=== PATIENT | male | born 1980 | race Caucasian/White ===

== ENCOUNTER 2020-09-09 08:46 | Emergency (ER) | payer SELFPAY ==
[2020-09-09 09:19] LABS: #Eosinphils 0.1 thou/uL (0.0-0.7); #Lymphocytes 3.3 thou/uL (1.20-3.40); #Neutrophils 7.6 thou/uL (1.40-6.50); %Basophils 0.2 % (0.0-1.0); %Eosinophils 0.5 % (0.0-10.0); %Lymphocytes 27.4 % (21.0-51.0); %Monocytes 8.2 % (0.0-10.0); %Neutrophils 63.8 % (42.0-75.0); Hemoglobin 15.9 g/dL (14.0-18.0); Mean Corpuscular HGB CONC 33.8 g/dL (32.0-36.0); Mean Corpuscular Volume 91.6 fL (78.0-98.0); Platelet Count 287 thou/uL (130-400); RBC Distribution Width 12.8 % (11.5-14.5); Red Blood Cell (RBC) Count 5.15 mill/uL (4.70-6.10); White Blood Cell (WBC) Count 11.9 thou/uL (4.8-10.8)
[2020-09-09] MEDS ORDERED: Lidocaine Viscous Sol 2% 15 ml UD Cup ONE (09:37)
[2020-09-09] MEDS ORDERED: Mag-Al 1200 mg/1200 mg/30 ML UDCUP ONE (09:37)
[2020-09-09] MEDS ORDERED: Famotidine/PF 20 mg/2ml Vial ONE (09:37)
[2020-09-09] MEDS ORDERED: Ondansetron PF 4 MG/2 ML Vial ONE (09:37)
[2020-09-09 09:44] LABS: ALT (SGPT) 24 U/L (8-55); AST (SGOT) 29 U/L (5-34); Albumin 4.4 g/dL (3.5-5.0); Alkaline Phosphatase 88 U/L (40-110); Anion Gap 15 mmol/L (10-20); BUN (Urea Nitrogen) 24 mg/dL (8.9-20.6); Bilirubin, Total 0.3 mg/dL (0.2-1.2); Calc. Creatinine Clearance 0 mL/min (70-130); Calcium 9.1 mg/dL (7.8-10.44); Carbon Dioxide 28 mmol/L (22-29); Chloride 100 mmol/L (98-107); Glucose 90 mg/dL (70-105); Potassium 4.1 mmol/L (3.5-5.1); Protein, Total 8.4 g/dL (6.0-8.3); Sodium 139 mmol/L (136-145)
== END 2020-09-09 12:30 | disposition home or self-care (01) ==
LOC: ERS 08:46
DX: K92.2 Gastrointestinal hemorrhage, unspecified (principal); E03.9 Hypothyroidism, unspecified; I10 Essential (primary) hypertension; Z79.899 Other long term (current) drug therapy
CPT/HCPCS: 36415; 80053; 82270; 85025; 86850; 86900; 86901; 87324; 87449; 93005; 96372; 96374; 96375; J0500; J2405; S0028

== ENCOUNTER 2020-09-10 04:49 | Inpatient (IN) | payer OTHER, SELFPAY ==
[2020-09-10] MEDS ORDERED: Pantoprazole 40 MG VIAL ONE (05:36)
[2020-09-10 06:08] LABS: #Basophils 0.1 thou/uL (0.0-0.2); #Eosinphils 0.1 thou/uL (0.0-0.7); #Lymphocytes 3.9 thou/uL (1.20-3.40); #Monocytes 1.1 thou/uL (0.11-0.59); #Neutrophils 10.2 thou/uL (1.40-6.50); %Basophils 0.8 % (0.0-1.0); %Eosinophils 0.6 % (0.0-10.0); %Lymphocytes 25.1 % (21.0-51.0); %Monocytes 7.3 % (0.0-10.0); %Neutrophils 66.3 % (42.0-75.0); Hemoglobin 13.4 g/dL (14.0-18.0); Mean Corpuscular HGB CONC 32.9 g/dL (32.0-36.0); Mean Corpuscular Hemoglobin 30.4 pg (27.0-31.0); Mean Corpuscular Volume 92.3 fL (78.0-98.0); Mean Platelet Volume 10.3 fL (7.4-10.4); Platelet Count 255 thou/uL (130-400); RBC Distribution Width 12.8 % (11.5-14.5); Red Blood Cell (RBC) Count 4.39 mill/uL (4.70-6.10); White Blood Cell (WBC) Count 15.4 thou/uL (4.8-10.8)
[2020-09-10 06:13] LABS: INR-International Normal Ratio 1.1; Prothrombin Time 14.1 sec (12.0-14.7)
[2020-09-10 06:32] LABS: PTT 21.8 sec (22.9-36.1)
[2020-09-10 06:57] LABS: ALT (SGPT) 22 U/L (8-55); AST (SGOT) 25 U/L (5-34); Albumin 4.3 g/dL (3.5-5.0); Alkaline Phosphatase 71 U/L (40-110); Anion Gap 17 mmol/L (10-20); BUN (Urea Nitrogen) 39 mg/dL (8.9-20.6); Bilirubin, Total 0.4 mg/dL (0.2-1.2); Calc. Creatinine Clearance 0 mL/min (70-130); Carbon Dioxide 20 mmol/L (22-29); Chloride 107 mmol/L (98-107); Globulin 3.2 g/dL (2.4-3.5); Glucose 99 mg/dL (70-105); Lipase 60 U/L (8-78); Potassium 3.7 mmol/L (3.5-5.1); Protein, Total 7.5 g/dL (6.0-8.3); Sodium 140 mmol/L (136-145)
[2020-09-10] MEDS ORDERED: Iopamidol-370 76% 500 ML 1 ML ONE (08:36)
--- NOTE | 2020-09-10 08:41 | CT ---
PRELIMINARY REPORT/[facility]/EMERGENCY AFTER HOURS PROCEDURE EXAM: CT Abdomen and Pelvis with Intravenous Contrast CLINICAL HISTORY: Patient who is Covid positive with history of ulcers here secondary to vomiting blood and having bloo dy stools. Started having black stools and then bright red blood per rectum. Had an episode of hematemesis yesterday. States that he is having lightheadedness and shortness of breath. Is having so me crampy upper abdominal pain. slight initial contrast injection. injected 20mL and stopped due to pt not withstanding the pressure of the IV TECHNIQUE: Axial computed tomography images of the abdomen and pelvis with intravenous contrast. CONTRAST: With; ISOVUE 370,90mL COMPARISON: None provided. FINDINGS: LUNG BASES: There are mild patchy peripheral groundglass airspace opacities within both lower lobes. LIVER: Unremarkable. GALLBLADDER AND BILE DUCTS: Unremarkable. No calcified stone. No ductal dilation. PANCREAS: Unremarkable. 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 ADRENAL GLANDS: Unremarkable. KIDNEYS, URETERS, AND BLADDER: The right kidney is unremarkable. There is a 1.4 cm cyst within the midportion of the left kidney. The bladder is underdistended. STOMACH AND BOWEL: No obstruction. No wall thickening. No CT evidence of colitis or acute diverticulitis. APPENDIX: No CT evidence for appendicitis. PERITONEUM: No free fluid. No free air. LYMPH NODES: No lymphadenopathy. REPRODUCTIVE: Unremarkable as visualized. VASCULATURE: No aortic aneurysm. BONES: Mild degenerative changes are seen from L4-S1. No acute osseous findings. ABDOMINAL WALL AND SOFT TISSUES: Unremarkable. IMPRESSION: 1. Mild patchy peripheral groundglass airspace disease within both lower lobes, correlated with histo ry of COVID. 2. No CT evidence of acute abdominal or pelvic process. ELECTRONICALLY SIGNED BY: Lolita Hanson MD Sep 10, 2020 7:18:01 AM COMPUTING ARCHITECT This report is intended for review by the ordering physician only, in accordance of law. If you recei ve this report in error, please call [facility] at [phone]. FINAL REPORT Final report by Dr. Gold Emergency after-hours study CT ABDOMEN WITH CONTRAST CT PELVIS WITH CONTRAST: DATE: 09/10/2020 6:44 AM HISTORY: COVID-19 positive male presents with hematemesis and bloody stools COMPARISON: None TECHNIQUE: IV injection of iodinated contrast media: administered. Oral contrast media:Not administered FINDINGS: Subtle finding of a few tiny, faint subpleural, peripheral groundglass pulmonary opacities at the lat eral aspect of anterior segment left upper lobe, and lateral aspect of right lower lobe. Appendix not identified. Small left renal cyst. Otherwise normal kidneys, abdominal aorta, pancreas, adrenals, liver, spleen, and urinary bladder. No small bowel dilation. No evidence of colonic diverticulitis. Mildly increased enhancement and questionable mural thickening of collapsed proximal sigmoid and lowe r descending colon, questionable for colitis in that location. No evidence of mural thickening or pericholecystic edema involving gallbladder. No major disagreement with preliminary report by [facility]. IMPRESSION: 1) Minimal, subtle COVID-19 bilateral pneumonia. 2) No definite acute intra-abdominal or intrapelvic pathology identified. Transcribed Date/Time: 09/10/2020 9:00 AM
[2020-09-10] MEDS ORDERED: Acetaminophen 650 MG Suppository PR PRN (09:24)
[2020-09-10] MEDS ORDERED: Morphine 2 MG/ML VIAL SLOW IVP PRN ×2 (09:51→12:30)
[2020-09-10] MEDS: Sodium Chloride 0.9% 1,000 ML IV SCH ×2 (10:31→16:35)
[2020-09-10] MEDS: Ondansetron PF 4 MG/2 ML Vial IVP PRN (10:31)
[2020-09-10] MEDS: HYDROcodone/Acetaminophen 5/325 mg Tablet PO PRN ×2 (13:03→20:45)
[2020-09-10] MEDS ORDERED: FLU VACC QS2020-21(6MOS UP)/PF 60 MCG/0.5 ML SYRINGE IM ONE (13:45)
--- NOTE | 2020-09-10 14:38 | HP ---
CHIEF COMPLAINT: Hematemesis and black tarry stool. HISTORY OF PRESENT ILLNESS: A 40-year-old male with a history of peptic ulcer disease roughly 7 years ago and hospitalized for the same, but not on PPI, presenting with both hematemesis as well as black tarry stools. He had COVID-19 symptoms started on Friday. For generalized body ache, he was taking ibuprofen 800 mg 3 times a day as well as Tylenol. He did come to the ER. At that time, he was instructed to take ibuprofen for his generalized body ache. He is self-quarantined in the hotel. Then, he started to have black tarry stools since Friday at least 3 or 4 times a day. On initial evaluation, his hemoglobin is 13.4, white count of 15.4, creatinine of 0.74, BUN of 39. His lactic acid is 3.0. Liver function test is in the normal range. Lipase is 60. He will be admitted for both COVID pneumonia management as well as GI bleed workup. The patient did not have any fever or significant abdominal pain other than crampy nature. ALLERGIES: HE HAS NO KNOWN DRUG ALLERGIES. REVIEW OF SYSTEMS: A 13-point review of systems reviewed with the patient and pertinence addressed in the history of present illness and rest is negative. He has some subjective fever and chills. Subjective cough as well as short of breath. He had no chest pain. Obviously, he had some nausea, vomiting, hematochezia as well as hematemesis. No rash or dependent edema. Denies headache, blurriness, tingling or numbness in his extremities. No polyuria, polydipsia. Denies any depression at this time. Rest of the review of systems all negative. PAST MEDICAL HISTORY: Hypothyroidism and hypertension. PAST SURGICAL HISTORY: Remote history of tonsillectomy. PSYCHIATRIC HISTORY: History of substance abuse, and he states that currently in the inpatient treatment center. CURRENT MEDICATIONS: He was taking levothyroxine 100 mcg daily. PHYSICAL EXAMINATION: VITAL SIGNS: His temperature 97.7, pulse 108, blood pressure 133/87, saturating 95% on room air. GENERAL: The patient appears well, nontoxic looking. However, he was asking for pain medications. No specific locations for his pain, mostly generalized. CARDIOVASCULAR: Regular rate and rhythm without murmurs, rubs, or gallops. LUNGS: Clear to auscultation bilaterally without wheezing, rales, or rhonchi. ABDOMEN: Soft, nontender, nondistended. Good bowel sounds. LABORATORY AND DIAGNOSTIC DATA: Sodium 140, creatinine 0.7, BUN is 39, bicarb is 20, chloride 107, potassium 3.7. Lipase 60. LFTs in the normal range. His WBC 15.4, hemoglobin 13.4, and platelets 255,000. CT of the abdomen and pelvis with contrast showed ground-glass airspace disease within both lower lobes. No CT evidence of acute abdominal or pelvic processes. IMPRESSION AND PLAN: This is a 40-year-old male with a history of peptic ulcer disease, presenting with: 1. COVID pneumonia. Started him on Decadron as well as vitamins and zinc. 2. Hematemesis and black tarry stools with possible gastrointestinal bleed and hemoglobin stable at 13.9. We will check his hemoglobin, hematocrit q.8 hours x3. GI consult has been placed. We will put him on Protonix IV b.i.d. since his hemoglobin is stable and he has no further episodes of hematemesis or hematochezia at this time. 3. Generalized body ache. The patient is n.p.o. for possible endoscopy study, so we will give him morphine, but the patient requesting for more. Alternate with Pioneer for now. 4. Hypothyroidism. Continue with levothyroxine supplement. The patient is saturating 95% on room air, and he does not require remdesivir at this point. 5. DVT prophylaxis with Lovenox b.i.d. as a DVT prophylaxis. 6. Full code. Job ID: [id number] [facility]
[2020-09-10 14:52] LABS: Hemoglobin 11.4 g/dL (14.0-18.0)
--- NOTE | 2020-09-10 18:02 | CON ---
DATE OF CONSULTATION: 09/10/2020 REQUESTING PHYSICIAN: Dr. Motta. REASON FOR CONSULTATION: GI bleeding. HISTORY OF PRESENT ILLNESS: Abram Mcdonnell is a 40-year-old man. He reports a prior history of peptic ulcer disease about 7 years ago elsewhere. He has no chronic gastrointestinal symptoms. He was diagnosed with COVID 6 days ago. Over the past week, he has been having some generalized body aches. No significant cough or respiratory symptoms. He had been taking Tylenol as well as ibuprofen 800 mg three times daily, not on any acid suppression. He reports about 5 days ago, he started having dark tarry stools. These have occurred at least 3 or 4 times per day, but over the past couple of days, they have increased in frequency to every couple of hours or so. Upon presentation this morning, hemoglobin was 13.4. This afternoon, it has dropped a little bit to 11.4. He has remained hemodynamically stable. He does have some epigastric discomfort as well as some nausea, no vomiting today, but a couple of days ago, he had some scant hematemesis. He has been started on IV pantoprazole and has been made n.p.o. For the COVID, he was started on Decadron as well as vitamins and zinc. He has no other complaints. REVIEW OF SYSTEMS: Full review of systems including constitutional, head, eyes, ears, nose, throat, GI, , cardiovascular, respiratory, musculoskeletal, neurologic systems is negative except as noted in the HPI. PAST MEDICAL HISTORY: Hypothyroidism, hypertension, peptic ulcer disease about 7 years ago, tonsillectomy, history of substance abuse. ALLERGIES: NO KNOWN DRUG ALLERGIES. OUTPATIENT MEDICATIONS: 1. Levothyroxine 100 mcg daily. 2. Ibuprofen 800 mg three times daily. 3. Tylenol p.r.n. PHYSICAL EXAMINATION: VITAL SIGNS: Temperature 97.7, pulse 108, blood pressure 133/87, and 95% oxygen saturation on room air. GENERAL: A 40-year-old man, lying in bed comfortably, in no acute distress. SKIN: No jaundice. No rashes were palpable. EYES: No scleral icterus. Extraocular movements intact. ENT: Mucous membranes moist. No oral lesions. LYMPH: No submandibular or supraclavicular lymphadenopathy. THYROID: Nontender to palpation. HEART: Regular, borderline tachycardia. LUNGS: Clear to auscultation bilaterally. ABDOMEN: Bowel sounds present. Soft. Some mild tenderness to palpation in the right and left upper quadrants and the epigastrium, but no guarding or rebound tenderness. EXTREMITIES: No peripheral edema. VESSELS: Radial pulses 2+ bilaterally. NEUROLOGIC: Cranial nerves 2 through 12 are intact bilaterally. No focal deficits. LABORATORY STUDIES: Hemoglobin initially 13.4, trended down to 11.4; WBC 15.4; platelets 255. INR 1.1. Sodium 140, potassium 3.7, BUN 39, creatinine 0.74. Lactic acid 3.0. Lipase only 60. LFTs all normal with total bilirubin 0.4, alkaline phosphatase 71, AST 25, ALT 22, albumin 4.3. COVID PCR was positive on 09/04/2020. IMAGING STUDIES: CT of the abdomen and pelvis performed early this morning showed no CT evidence of any acute intraabdominal process. There are some subtle ground-glass pulmonary opacities bilaterally consistent with COVID pneumonia. ASSESSMENT AND PLAN: 1. Upper gastrointestinal hemorrhage, characterized by recent melena and hematemesis, stable. 2. Acute blood loss anemia, mild. 3. Prior history of peptic ulcer disease. 4. COVID pneumonia. The patient's presentation is consistent with subacute upper gastrointestinal bleeding, it seems over the past several days. Despite the frequency of his melena, he remains hemodynamically stable with hemoglobin satisfactory at 11.4 this afternoon. With a prior history of peptic ulcer disease and current NSAID use over the past week, suspect recurrence of peptic ulcer disease. He has appropriately been started on IV pantoprazole 40 mg q.12 hours. Agree with n.p.o. status for now. His positive COVID status complicates things. The overall risk of performing upper endoscopy in this setting is increased, including risk of spreading the infection to medical staff as it is an aerosol-generating procedure. We are not going to schedule him for any endoscopy at this time. Rather, continue to treat empirically with PPI, monitor closely, follow up hemoglobin and hematocrit tomorrow. If the patient would develop hemodynamically significant worsening of bleeding, could always re-evaluate and plan for endoscopy. We would keep him n.p.o., to keep our options open. Thank you for the consultation. Please call anytime with questions or concerns. Job ID: [id number]
[2020-09-10 18:39] LABS: Hemoglobin 11.6 g/dL (14.0-18.0)
[2020-09-10] MEDS: Pantoprazole 40 MG VIAL IVP SCH (20:46)
[2020-09-11 00:58] LABS: Hemoglobin 9.9 g/dL (14.0-18.0)
[2020-09-11] MEDS: Acetaminophen 325 MG TAB PO PRN ×2 (01:51→06:14)
[2020-09-11] MEDS: Ondansetron PF 4 MG/2 ML Vial IVP PRN ×4 (01:57→20:52)
[2020-09-11] MEDS ORDERED: Fioricet 325/50/40 mg Tablet PO PRN (03:12)
[2020-09-11 04:50] LABS: #Basophils 0.1 thou/uL (0.0-0.2); #Eosinphils 0.3 thou/uL (0.0-0.7); #Lymphocytes 3.6 thou/uL (1.20-3.40); #Monocytes 0.9 thou/uL (0.11-0.59); #Neutrophils 8.2 thou/uL (1.40-6.50); %Basophils 0.6 % (0.0-1.0); %Eosinophils 2.1 % (0.0-10.0); %Lymphocytes 27.6 % (21.0-51.0); %Monocytes 6.9 % (0.0-10.0); %Neutrophils 62.8 % (42.0-75.0); Hemoglobin 10.2 g/dL (14.0-18.0); Mean Corpuscular HGB CONC 34.4 g/dL (32.0-36.0); Mean Corpuscular Hemoglobin 31.6 pg (27.0-31.0); Mean Corpuscular Volume 91.8 fL (78.0-98.0); Mean Platelet Volume 10.1 fL (7.4-10.4); Platelet Count 256 thou/uL (130-400); RBC Distribution Width 12.8 % (11.5-14.5); Red Blood Cell (RBC) Count 3.24 mill/uL (4.70-6.10)
[2020-09-11 05:06] LABS: ALT (SGPT) 17 U/L (8-55); AST (SGOT) 20 U/L (5-34); Albumin 3.8 g/dL (3.5-5.0); Alkaline Phosphatase 58 U/L (40-110); Anion Gap 14 mmol/L (10-20); BUN (Urea Nitrogen) 18 mg/dL (8.9-20.6); Bilirubin, Total 0.4 mg/dL (0.2-1.2); Calc. Creatinine Clearance 158 mL/min (70-130); Calcium 8.3 mg/dL (7.8-10.44); Carbon Dioxide 23 mmol/L (22-29); Chloride 105 mmol/L (98-107); Globulin 2.7 g/dL (2.4-3.5); Glucose 100 mg/dL (70-105); Potassium 3.6 mmol/L (3.5-5.1); Protein, Total 6.5 g/dL (6.0-8.3); Sodium 138 mmol/L (136-145)
[2020-09-11] MEDS: Levothyroxine Sodium 100 MCG TAB PO SCH (06:14)
[2020-09-11] MEDS: Pantoprazole 40 MG VIAL IVP SCH ×2 (08:02→20:00)
[2020-09-11] MEDS: Zinc Sulfate 220 MG CAP PO SCH (08:03)
[2020-09-11] MEDS: Cholecalciferol 1,000 UNITS (25 MCG) TAB PO SCH (08:03)
[2020-09-11] MEDS: Ascorbic Acid 500 mg Chewable Tablet PO SCH (08:04)
[2020-09-11 08:06] LABS: Hemoglobin 10.2 g/dL (14.0-18.0)
[2020-09-11] MEDS ORDERED: Dexamethasone 4 mg/ml Vial SLOW IVP SCH (09:00)
--- NOTE | 2020-09-11 09:24 | PRG ---
DATE OF SERVICE: 09/11/2020 SUBJECTIVE: Mr. Mcdonnell has remained hemodynamically stable. He does report 3 dark bowel movements overnight. He also reports some worsening of his epigastric pain. There is some mild nausea, but no vomiting. He was tolerating clear liquids yesterday with IV fluids. Hemoglobin declined to 10.2, but is stable this morning. OBJECTIVE: VITAL SIGNS: Temperature 98.2, pulse 83, blood pressure 140/91, 100% oxygen saturation on room air. GENERAL: Lying in bed comfortably, in no acute distress. HEART: Regular rate and rhythm. LUNGS: Clear to auscultation bilaterally. ABDOMEN: Bowel sounds present. Soft. Tender to palpation in the upper abdomen. No guarding or rebound tenderness. EXTREMITIES: No peripheral edema. LABORATORY STUDIES: Hemoglobin declined from 11.4 yesterday afternoon to 10.2 this morning. WBC is 13.0, platelets 256. INR 1.1. BUN dropped from [address] to 18, creatinine is 0.69. Sodium 138, potassium 3.6. LFTs all remain normal. ASSESSMENT/PLAN: 1. Upper gastrointestinal bleeding, characterized by melena and acute blood loss anemia, stable. My impression is that his bleeding episode is resolving. His BUN has rapidly declined. Hemoglobin declined only one point since yesterday afternoon. He has not required any transfusion to this point. We are still holding off on any upper endoscopy due to his positive COVID status and clinical stability. Continue with IV pantoprazole 40 mg q.12 hours. The patient can be back on clear liquids today. We will continue to follow. 2. Epigastric abdominal pain. My suspicion is he probably has recurrent peptic ulcer disease given his heavy NSAID use recently. Note that he came from rehab facility, though I believe his admission there was for benzodiazepine, not opioid abuse. Pain management per the primary service. Job ID: [id number]
[2020-09-11] MEDS ORDERED: Lorazepam 2 MG/ML VIAL SLOW IVP PRN (11:38)
--- NOTE | 2020-09-11 16:05 | PDOC.HOSPP ---
- Subjective Encounter Date: 09/11/20 Encounter Time: 10:30 Subjective: Patient up in bed states that he is undergoing withdrawal. - Objective Vital Signs & Weight: Vital Signs (12 hours) Temp Pulse Resp BP Pulse Ox 09/11/20 12:35 99.1 F 91 20 128/93 H 100 09/11/20 08:29 100 09/11/20 08:28 98.2 F 83 18 140/91 H 100 Weight Weight 170 lb 14.4 oz I&O: 09/10/20 09/11/20 09/12/20 06:59 06:59 06:59 Intake Total 240 Balance 240 Result Diagrams: 09/11/20 07:47 09/11/20 04:32 Hospitalist ROS - Review of Systems Cardiovascular: denies: chest pain, palpitations, orthopnea, paroxysmal noc. dyspnea, edema, light headedness, other Gastrointestinal: reports: nausea, vomiting, abdominal pain Genitourinary: denies: dysuria, frequency, incontinence, hematuria, retention, other Musculoskeletal: denies: neck pain, shoulder pain, arm pain, back pain, hand pain, leg pain, foot pain, other - Medication Medications: Active Medications Generic Name Dose Route Start Last Admin Trade Name Freq PRN Reason Stop Dose Admin Acetaminophen 650 mg 09/10/20 09:24 09/11/20 06:14 Acetaminophen 325 Mg Tab PO 650 mg Q4H PRN Administration Headache/Fever/Mild Pain (1-3) Acetaminophen/Butalbital/Caffeine 1 tab 09/11/20 03:12 09/11/20 03:57 Fioricet 325/50/40 Mg Tablet PO 09/16/20 03:13 1 tab Q4H PRN Administration Headache Ascorbic Acid 1,000 mg 09/11/20 09:00 09/11/20 08:04 Ascorbic Acid 500 Mg Chewable Tablet PO 1,000 mg DAILY AMELIA Administration Cholecalciferol 2,000 units 09/11/20 09:00 09/11/20 08:03 Cholecalciferol 1,000 Units (25 Mcg) Tab PO 2,000 units DAILY AMELIA Administration Levothyroxine Sodium 100 mcg 09/11/20 06:00 09/11/20 06:14 Levothyroxine Sodium 100 Mcg Tab PO 100 mcg 0600 AMELIA Administration Ondansetron HCl 4 mg 09/11/20 12:00 09/11/20 12:31 Ondansetron Pf 4 Mg/2 Ml Vial IVP 4 mg Q4H PRN Administration Nausea/Vomiting Pantoprazole Sodium 40 mg 09/10/20 21:00 09/11/20 08:02 Pantoprazole 40 Mg Vial IVP 40 mg BID AMELIA Administration Sodium Chloride 10 ml 09/10/20 21:00 09/11/20 08:03 Flush - Normal Saline 10 Ml Syringe IVF 10 ml Q12HR AMELIA Administration Sodium Chloride 10 ml 09/10/20 10:15 09/11/20 06:15 Flush - Normal Saline 10 Ml Syringe IVF 10 ml PRN PRN Administration Saline Flush Zinc Sulfate 220 mg 09/11/20 09:00 09/11/20 08:03 Zinc Sulfate 220 Mg Cap PO 220 mg DAILY AMELIA Administration - Exam Neck: negative: supple, symmetric, no JVD, no thyromegaly, no lymphadenopathy, no carotid bruit, JVD Heart: negative: RRR, no murmur, no gallops, no rubs, normal peripheral pulses, irregular, diminshed peripheral pulses, murmur present, II/IV, III/IV Respiratory: negative: CTAB, no wheezes, no rales, no ronchi, normal chest expansion, no tachypnea, normal percussion, rales, rhonchi, tachypneic, wheezes Gastrointestinal: soft, normal bowel sounds Gastrointestinal - other findings: Mild abdominal pain epigastric Hosp A/P (1) History of peptic ulcer Code(s): Z87.11 - PERSONAL HISTORY OF PEPTIC ULCER DISEASE Status: Acute (2) Anemia Code(s): D64.9 - ANEMIA, UNSPECIFIED Status: Acute (3) Upper GI bleed Code(s): K92.2 - GASTROINTESTINAL HEMORRHAGE, UNSPECIFIED Status: Acute (4) Benzodiazepine abuse Code(s): F13.10 - SEDATIVE, HYPNOTIC OR ANXIOLYTIC ABUSE, UNCOMPLICATED Status: Acute - Plan We will continue Protonix twice daily. Patient finished his benzodiazepine tapering with phenobarbital August 30. He has been off of all medications since then. He is not tachycardic not hyper tensive is not really showing any withdrawals or withdrawal except for what he is telling us. Patient is opposed to go to another rehab center. Unable to undergo EGD due to his current Covid positive. Will stop steroids since his sats are 100%. Clear liquids advance per GIs recommendation
[2020-09-11] MEDS: Nicotine 14 MG PATCH TOP SCH (18:21)
[2020-09-11] MEDS: Lorazepam 2 MG/ML VIAL SLOW IVP PRN (20:52)
[2020-09-12] MEDS: Levothyroxine Sodium 100 MCG TAB PO SCH (05:42)
[2020-09-12] MEDS: Ascorbic Acid 500 mg Chewable Tablet PO SCH (08:29)
[2020-09-12] MEDS: Zinc Sulfate 220 MG CAP PO SCH (08:29)
[2020-09-12] MEDS: Pantoprazole 40 MG VIAL IVP SCH ×2 (08:30→19:43)
[2020-09-12] MEDS: Cholecalciferol 1,000 UNITS (25 MCG) TAB PO SCH (08:30)
[2020-09-12] MEDS: Ondansetron PF 4 MG/2 ML Vial IVP PRN ×2 (12:27→17:01)
[2020-09-12] MEDS: Lorazepam 2 MG/ML VIAL SLOW IVP PRN ×2 (12:27→19:43)
[2020-09-12] MEDS: Acetaminophen 325 MG TAB PO PRN (13:27)
--- NOTE | 2020-09-12 14:32 | PDOC.HOSPP ---
- Subjective Encounter Date: 09/12/20 Encounter Time: 10:00 Subjective: Patient up in bed states he is diaphoretic does not feel well. He denies being suicidal or having any suicidal ideation - Objective Vital Signs & Weight: Vital Signs (12 hours) Temp Pulse Resp BP BP Pulse Ox 09/12/20 12:16 98.2 F 100 20 144/95 H 99 09/12/20 08:00 98.1 F 94 20 127/98 H 100 09/12/20 04:00 98.3 F 110 H 18 123/74 100 Weight Admit Weight 170 lb 14.4 oz Weight 170 lb 14.4 oz I&O: 09/11/20 09/12/20 09/13/20 06:59 06:59 06:59 Intake Total 240 474 Balance 240 474 Result Diagrams: 09/11/20 07:47 09/11/20 04:32 Hospitalist ROS - Review of Systems Cardiovascular: denies: chest pain, palpitations, orthopnea, paroxysmal noc. dyspnea, edema, light headedness, other Gastrointestinal: reports: nausea Genitourinary: denies: dysuria, frequency, incontinence, hematuria, retention, other - Medication Medications: Active Medications Generic Name Dose Route Start Last Admin Trade Name Freq PRN Reason Stop Dose Admin Acetaminophen 650 mg 09/10/20 09:24 09/12/20 13:27 Acetaminophen 325 Mg Tab PO 650 mg Q4H PRN Administration Headache/Fever/Mild Pain (1-3) Acetaminophen/Butalbital/Caffeine 1 tab 09/11/20 03:12 09/11/20 03:57 Fioricet 325/50/40 Mg Tablet PO 09/16/20 03:13 1 tab Q4H PRN Administration Headache Ascorbic Acid 1,000 mg 09/11/20 09:00 09/12/20 08:29 Ascorbic Acid 500 Mg Chewable Tablet PO 1,000 mg DAILY AMELIA Administration Cholecalciferol 2,000 units 09/11/20 09:00 09/12/20 08:30 Cholecalciferol 1,000 Units (25 Mcg) Tab PO 2,000 units DAILY AMELIA Administration Levothyroxine Sodium 100 mcg 09/11/20 06:00 09/12/20 05:42 Levothyroxine Sodium 100 Mcg Tab PO 100 mcg 0600 AMELIA Administration Nicotine 14 mg 09/11/20 18:00 09/11/20 18:21 Nicotine 14 Mg Patch TOP 14 mg Q24HR AMELIA Administration Ondansetron HCl 4 mg 09/11/20 12:00 09/12/20 12:27 Ondansetron Pf 4 Mg/2 Ml Vial IVP 4 mg Q4H PRN Administration Nausea/Vomiting Pantoprazole Sodium 40 mg 09/10/20 21:00 09/12/20 08:30 Pantoprazole 40 Mg Vial IVP 40 mg BID AMELIA Administration Sodium Chloride 10 ml 09/10/20 21:00 09/12/20 08:30 Flush - Normal Saline 10 Ml Syringe IVF 10 ml Q12HR AMELIA Administration Sodium Chloride 10 ml 09/10/20 10:15 09/11/20 06:15 Flush - Normal Saline 10 Ml Syringe IVF 10 ml PRN PRN Administration Saline Flush Zinc Sulfate 220 mg 09/11/20 09:00 09/12/20 08:29 Zinc Sulfate 220 Mg Cap PO 220 mg DAILY AMELIA Administration - Exam Heart: negative: RRR, no murmur, no gallops, no rubs, normal peripheral pulses, irregular, diminshed peripheral pulses, murmur present, II/IV, III/IV Respiratory: negative: CTAB, no wheezes, no rales, no ronchi, normal chest expansion, no tachypnea, normal percussion, rales, rhonchi, tachypneic, wheezes Gastrointestinal: negative: soft, non-tender, non-distended, normal bowel s ounds, no palpable masses, no hepatomegaly, no splenomegaly, no bruit, no guarding, no rigidity, tender to palpation, distended, diminished bowl sounds, voluntary guarding Extremities: 1+ LE edema Hosp A/P (1) History of peptic ulcer Code(s): Z87.11 - PERSONAL HISTORY OF PEPTIC ULCER DISEASE Status: Acute (2) Anemia Code(s): D64.9 - ANEMIA, UNSPECIFIED Status: Acute (3) Upper GI bleed Code(s): K92.2 - GASTROINTESTINAL HEMORRHAGE, UNSPECIFIED Status: Acute (4) Benzodiazepine abuse Code(s): F13.10 - SEDATIVE, HYPNOTIC OR ANXIOLYTIC ABUSE, UNCOMPLICATED Status: Acute (5) COVID-19 Code(s): U07.1 - COVID-19 Status: Acute - Plan We will continue Protonix twice daily. Patient finished his benzodiazepine tapering with phenobarbital August 30. He has been off of all medications since then. He is not tachycardic not hyper tensive is not really showing any withdrawals or withdrawal except for what he is telling us. Patient is opposed to go to another rehab center. Unable to undergo EGD due to his current Covid positive. Will stop steroids since his sats are 100%. Clear liquids advance per GIs recommendation 09/12 patient states that he was supposed to be on a tapering dose of phenobarbital. I will give him lorazepam 1 mg every 6 hours. I have told him that I will not give him a prescription of any benzodiazepines. Patient currently is not suicidal. Had a conversation with him and he states that he does not want to harm himself. We will advance his diet and if he tolerates possible discharge to his inpatient rehabilitation center. H&H has been stable. We will continue Protonix.
[2020-09-12 15:10] LABS: Hemoglobin 9.7 g/dL (14.0-18.0)
[2020-09-12] MEDS: Nicotine 14 MG PATCH TOP SCH (16:59)
--- NOTE | 2020-09-12 17:00 | PRG ---
DATE OF SERVICE: 09/12/2020 SUBJECTIVE: Mr. Mcdonnell has had no bowel movement today. OBJECTIVE: VITAL SIGNS: Temperature 98.5, pulse 100, blood pressure 142/81. GENERAL: He is in no acute distress. Alert and oriented x3. LUNGS: Clear to auscultation bilaterally. HEART: Regular rate and rhythm without murmur. ABDOMEN: Soft, nontender, and nondistended. Bowel sounds are present. EXTREMITIES: No lower extremity edema. LABORATORY DATA: Hemoglobin is 9.7 today. IMPRESSION: 1. Upper gastrointestinal bleed and anemia of acute blood loss. 2. History of peptic ulcer. 3. Coronavirus disease positive. RECOMMENDATIONS: 1. He is having no further overt bleeding. A peptic ulcer suspected is likely etiology. Treatment will be supportive with proton pump inhibitor. 2. Continue PPI. 3. I will sign off. Please call if GI can be of assistance. Job ID: [id number]
[2020-09-13] MEDS: Lorazepam 2 MG/ML VIAL SLOW IVP PRN ×2 (02:50→08:47)
[2020-09-13] MEDS: Levothyroxine Sodium 100 MCG TAB PO SCH (05:40)
[2020-09-13 06:06] LABS: SARS-CoV-2 MS2 Positive; SARS-CoV-2 N Gene Negative; SARS-CoV-2 S Gene Negative; SARS-CoV-2 by NAA Not Detected (NotDetected); SARS-CoV-2 orf1ab Negative
[2020-09-13] MEDS: Ascorbic Acid 500 mg Chewable Tablet PO SCH (08:46)
[2020-09-13] MEDS: Zinc Sulfate 220 MG CAP PO SCH (08:46)
[2020-09-13] MEDS: Cholecalciferol 1,000 UNITS (25 MCG) TAB PO SCH (08:46)
[2020-09-13] MEDS: Pantoprazole 40 MG VIAL IVP SCH (08:47)
[2020-09-13] MEDS: Ondansetron PF 4 MG/2 ML Vial IVP PRN ×2 (08:59→17:07)
[2020-09-13 10:10] LABS: #Basophils 0.1 thou/uL (0.0-0.2); #Eosinphils 0.1 thou/uL (0.0-0.7); #Lymphocytes 4.3 thou/uL (1.20-3.40); #Monocytes 0.8 thou/uL (0.11-0.59); %Basophils 0.6 % (0.0-1.0); %Eosinophils 0.9 % (0.0-10.0); %Lymphocytes 41.7 % (21.0-51.0); %Monocytes 7.9 % (0.0-10.0); Hemoglobin 10.4 g/dL (14.0-18.0); Mean Corpuscular Hemoglobin 30.9 pg (27.0-31.0); Mean Corpuscular Volume 93.5 fL (78.0-98.0); Platelet Count 323 thou/uL (130-400); RBC Distribution Width 13.2 % (11.5-14.5); Red Blood Cell (RBC) Count 3.37 mill/uL (4.70-6.10); White Blood Cell (WBC) Count 10.2 thou/uL (4.8-10.8)
[2020-09-13] MEDS: Lorazepam 1 MG TAB PO PRN ×2 (14:47→21:03)
--- NOTE | 2020-09-13 15:09 | PDOC.HOSPP ---
- Subjective Encounter Date: 09/13/20 Encounter Time: 10:00 Subjective: Patient up in bed stated that he had nausea vomiting yesterday. - Objective Vital Signs & Weight: Vital Signs (12 hours) Temp Pulse Resp BP Pulse Ox 09/13/20 04:00 97.9 F 82 14 123/73 97 Weight Admit Weight 170 lb 14.4 oz Weight 170 lb 14.4 oz I&O: 09/12/20 09/13/20 09/14/20 06:59 06:59 06:59 Intake Total 474 240 Output Total 100 Balance 474 140 Result Diagrams: 09/13/20 10:03 09/11/20 04:32 Hospitalist ROS - Review of Systems Cardiovascular: denies: chest pain, palpitations, orthopnea, paroxysmal noc. d yspnea, edema, light headedness, other Gastrointestinal: reports: nausea, vomiting Genitourinary: denies: dysuria, frequency, incontinence, hematuria, retention, other - Medication Medications: Active Medications Generic Name Dose Route Start Last Admin Trade Name Freq PRN Reason Stop Dose Admin Acetaminophen 650 mg 09/10/20 09:24 09/12/20 13:27 Acetaminophen 325 Mg Tab PO 650 mg Q4H PRN Administration Headache/Fever/Mild Pain (1-3) Acetaminophen/Butalbital/Caffeine 1 tab 09/11/20 03:12 09/11/20 03:57 Fioricet 325/50/40 Mg Tablet PO 09/16/20 03:13 1 tab Q4H PRN Administration Headache Ascorbic Acid 1,000 mg 09/11/20 09:00 09/13/20 08:46 Ascorbic Acid 500 Mg Chewable Tablet PO 1,000 mg DAILY AMELIA Administration Cholecalciferol 2,000 units 09/11/20 09:00 09/13/20 08:46 Cholecalciferol 1,000 Units (25 Mcg) Tab PO 2,000 units DAILY AMELIA Administration Levothyroxine Sodium 100 mcg 09/11/20 06:00 09/13/20 05:40 Levothyroxine Sodium 100 Mcg Tab PO 100 mcg 0600 AMELIA Administration Lorazepam 1 mg 09/13/20 09:33 09/13/20 14:47 Lorazepam 1 Mg Tab PO 1 mg Q6H PRN Administration Anxiety/Agitation Nicotine 14 mg 09/11/20 18:00 01/12/21 16:59 Nicotine 14 Mg Patch TOP 14 mg Q24HR AMELIA Administration Ondansetron HCl 4 mg 09/11/20 12:00 09/13/20 08:59 Ondansetron Pf 4 Mg/2 Ml Vial IVP 4 mg Q4H PRN Administration Nausea/Vomiting Sodium Chloride 10 ml 09/10/20 21:00 09/13/20 08:55 Flush - Normal Saline 10 Ml Syringe IVF 10 ml Q12HR AMELIA Administration Sodium Chloride 10 ml 09/10/20 10:15 09/11/20 06:15 Flush - Normal Saline 10 Ml Syringe IVF 10 ml PRN PRN Administration Saline Flush Zinc Sulfate 220 mg 09/11/20 09:00 09/13/20 08:46 Zinc Sulfate 220 Mg Cap PO 220 mg DAILY AMELIA Administration - Exam Heart: negative: RRR, no murmur, no gallops, no rubs, normal peripheral pulses, irregular, diminshed peripheral pulses, murmur present, II/IV, III/IV Respiratory: negative: CTAB, no wheezes, no rales, no ronchi, normal chest expansion, no tachypnea, normal percussion, rales, rhonchi, tachypneic, wheezes Gastrointestinal: negative: soft, non-tender, non-distended, normal bowel sounds, no palpable masses, no hepatomegaly, no splenomegaly, no bruit, no guarding, no rigidity, tender to palpation, distended, diminished bowl sounds, voluntary guarding Extremities: 2+ LE edema Hosp A/P (1) History of peptic ulcer Code(s): Z87.11 - PERSONAL HISTORY OF PEPTIC ULCER DISEASE Status: Acute (2) Anemia Code(s): D64.9 - ANEMIA, UNSPECIFIED Status: Acute (3) Upper GI bleed Code(s): K92.2 - GASTROINTESTINAL HEMORRHAGE, UNSPECIFIED Status: Acute (4) Benzodiazepine abuse Code(s): F13.10 - SEDATIVE, HYPNOTIC OR ANXIOLYTIC ABUSE, UNCOMPLICATED Status: Acute (5) COVID-19 Code(s): U07.1 - COVID-19 Status: Acute - Plan We will continue Protonix twice daily. Patient finished his benzodiazepine tapering with phenobarbital August 30. He has been off of all medications since then. He is not tachycardic not hyper tensive is not really showing any withdrawals or withdrawal except for what he is telling us. Patient is opposed to go to another rehab center. Unable to undergo EGD due to his current Covid positive. Will stop steroids since his sats are 100%. Clear liquids advance per GIs recommendation 09/12 patient states that he was supposed to be on a tapering dose of phenobarbital. I will give him lorazepam 1 mg every 6 hours. I have told him that I will not give him a prescription of any benzodiazepines. Patient currently is not suicidal. Had a conversation with him and he states that he does not want to harm himself. We will advance his diet and if he tolerates possible discharge to his inpatient rehabilitation center. H&H has been stable. We will continue Protonix. 09/13 patient currently is on Ativan 1 every 6 hours as needed. His repeat Covid test was negative. I will go ahead and repeat another one if that is negative we will take him off the precautions and I will discharge him to rehab. Patient did have nausea vomiting yesterday however he has tolerated his breakfast today we will see how he does. H&H is stable. Continue Protonix
[2020-09-13] MEDS: Nicotine 14 MG PATCH TOP SCH (17:06)
[2020-09-13 17:26] LABS: SARS-CoV-2 MS2 Positive; SARS-CoV-2 N Gene Negative; SARS-CoV-2 S Gene Negative; SARS-CoV-2 by NAA Not Detected (NotDetected); SARS-CoV-2 orf1ab Negative
[2020-09-13] MEDS: Sodium Chloride 0.9% 1,000 ML IV SCH (21:03)
[2020-09-14] MEDS: Lorazepam 1 MG TAB PO PRN ×3 (04:14→17:56)
[2020-09-14] MEDS: Ondansetron PF 4 MG/2 ML Vial IVP PRN ×3 (04:14→15:44)
[2020-09-14] MEDS: Sodium Chloride 0.9% 1,000 ML IV SCH ×2 (04:14→15:41)
[2020-09-14] MEDS: Levothyroxine Sodium 100 MCG TAB PO SCH (05:52)
[2020-09-14] MEDS: Ascorbic Acid 500 mg Chewable Tablet PO SCH (09:06)
[2020-09-14] MEDS: Cholecalciferol 1,000 UNITS (25 MCG) TAB PO SCH (09:07)
[2020-09-14] MEDS: Zinc Sulfate 220 MG CAP PO SCH (09:07)
[2020-09-14 09:57] LABS: #Basophils 0.1 thou/uL (0.0-0.2); #Eosinphils 0.1 thou/uL (0.0-0.7); #Lymphocytes 3.9 thou/uL (1.20-3.40); #Monocytes 1.1 thou/uL (0.11-0.59); #Neutrophils 5.4 thou/uL (1.40-6.50); %Basophils 0.8 % (0.0-1.0); %Eosinophils 1.2 % (0.0-10.0); %Lymphocytes 36.8 % (21.0-51.0); %Monocytes 10.3 % (0.0-10.0); Hemoglobin 9.1 g/dL (14.0-18.0); Mean Corpuscular HGB CONC 34.2 g/dL (32.0-36.0); Mean Corpuscular Hemoglobin 31.3 pg (27.0-31.0); Mean Corpuscular Volume 91.4 fL (78.0-98.0); Mean Platelet Volume 10.1 fL (7.4-10.4); Platelet Count 346 thou/uL (130-400); RBC Distribution Width 13.3 % (11.5-14.5); Red Blood Cell (RBC) Count 2.92 mill/uL (4.70-6.10); White Blood Cell (WBC) Count 10.6 thou/uL (4.8-10.8)
[2020-09-14] MEDS ORDERED: PROPOFOL 200 MG/20 ML VIAL ONE (12:17)
[2020-09-14] MEDS ORDERED: Lidocaine 1% PF 5 ML VIAL ONE (12:17)
--- NOTE | 2020-09-14 12:22 | PRG ---
DATE OF SERVICE: 09/14/2020 SUBJECTIVE: I have been asked to revaluate Mr. Mcdonnell for endoscopy as he has had negative COVID test now. The patient denies any shortness of breath, cough. He had last bowel movement yesterday, was still kind of dark and more formed. OBJECTIVE: VITAL SIGNS: Temperature is 98, pulse is 98, blood pressure is 140/75. ABDOMEN: Soft, nontender. He is thin. LUNGS: Clear. LABORATORY DATA: Hemoglobin is 9.1, it was 11.6 on admission. BUN and creatinine are 18 and 0.69. ASSESSMENT: 1. Admitted with melena and history of heavy NSAID use related to his coronavirus disease infection. 2. Prior peptic ulcer disease. 3. On PPIs. 4. Coronavirus disease symptoms began on 09/03, diagnosed at 09/04. He has been asymptomatic for about 72 hours. He has been afebrile since admission. He is not requiring supplemental oxygen. Hospitalist has asked me if we can perform an endoscopy today on him. Satisfy treatment plan for being go home. Coronavirus disease test by PCR on the or were negative. PLAN: Proceed with EGD today. Job ID: [id number]
--- NOTE | 2020-09-14 13:30 | OP ---
DATE OF PROCEDURE: 09/14/2020 PROCEDURE PERFORMED: Esophagogastroduodenoscopy PREPROCEDURE DIAGNOSES: 1. Admission with melena after taking heavy doses of NSAIDs with recent viral illness with COVID-19. 2. Resolution of respiratory symptoms, asymptomatic for over 48 hours. 3. Negative COVID test on the and . 4. Prior history of peptic ulcer disease. 5. Melena on admission. POSTPROCEDURE DIAGNOSES: 1. Normal esophagus. 2. Stomach notable for nonerosive gastritis, biopsied. 3. Duodenum notable for mild erosive duodenitis, no overt hemorrhage. RECOMMENDATIONS: 1. The patient can go home on a PPI. 2. Avoid all NSAIDs. 3. Follow up in the office in 4 to [address] López or his physician assistant community manager. ANESTHESIA: TIVA. DESCRIPTION OF PROCEDURE: After the patient was informed of the risks, benefits, and possible complications of endoscopy including perforation, reaction to medication, and aspiration, informed consent was obtained. The patient was brought to the endoscopy suite, where he was sedated in gradual fashion. Once he was comfortable, endoscope was advanced through the bite block into the esophagus, stomach, into second and third portions of the duodenum, and slowly removed. The duodenum was notable for a few small erosions, nonbleeding. No visible vessels were seen. No large ulcers were seen. The bulb was notable for mild erythema. The pyloric channel was normal. The stomach was normal in forward and retroflexed views. Biopsies were taken for H pylori as he has history of bleeding in the past. The GE junction was normal in forward and retroflexed views. The esophagus was normal. Scope was removed. Rectal exam was done for the patient while he was sedated to evaluate for melena, which he states is persisting. The stool was dark brown, but not melenic. Job ID: [id number]
[2020-09-14] MEDS: Nicotine 14 MG PATCH TOP SCH (17:56)
[2020-09-14] MEDS ORDERED: Melatonin 3 MG TAB PO PRN (18:28)
[2020-09-14] MEDS ORDERED: Lorazepam 2 MG/ML VIAL SLOW IVP SCH (18:45)
[2020-09-14 19:56] LABS: SARS-CoV-2 IgG Ab Non-Reactive (NonReactive); SARS-CoV-2 IgG Index 0.78 S/CO (< 1.40)
[2020-09-15] MEDS: Lorazepam 1 MG TAB PO PRN ×4 (00:29→20:23)
[2020-09-15] MEDS: Levothyroxine Sodium 100 MCG TAB PO SCH (06:22)
[2020-09-15] MEDS: Cholecalciferol 1,000 UNITS (25 MCG) TAB PO SCH ×2 (08:21→09:07)
[2020-09-15] MEDS: Zinc Sulfate 220 MG CAP PO SCH ×2 (08:21→09:08)
[2020-09-15] MEDS: Ascorbic Acid 500 mg Chewable Tablet PO SCH ×2 (08:22→09:06)
--- NOTE | 2020-09-15 11:40 | PRG ---
DATE OF SERVICE: 09/15/2020 SUBJECTIVE: Mr. Mcdonnell is resting in bed, actually lying backwards on his bed. He is going to go back to rehab. Temperature is 98, pulse 97, blood pressure 160/73. He is in no distress. LABORATORY DATA: No labs today. ASSESSMENT: Status post EGD for epigastric pain, likely NSAID related. He had some antral gastritis. No ulcers. Biopsies for Helicobacter pylori were negative. RECOMMENDATIONS: Avoid NSAIDs. Continue PPI therapy. We will sign off at this time. Job ID: [id number]
[2020-09-15 14:22] VITALS: BMI 23.1
[2020-09-15] MEDS: Nicotine 14 MG PATCH TOP SCH (17:16)
[2020-09-15 19:55] VITALS: BP 145/82; TEMP 98.4
--- NOTE | 2020-09-15 20:51 | PDOC.HOSPP ---
- Subjective Encounter Date: 09/14/20 Encounter Time: 15:00 Subjective: Patient up in bed very tearful crying. - Objective Vital Signs & Weight: Vital Signs (12 hours) Temp Pulse Resp BP BP Pulse Ox 09/15/20 19:52 98.4 F 92 19 145/82 H 99 09/15/20 15:32 97.8 F 87 18 120/81 99 09/15/20 11:18 97.8 F 97 18 106/69 100 Weight Admit Weight 170 lb 14.4 oz Weight 161 lb 6.4 oz I&O: 09/14/20 09/15/20 09/16/20 06:59 06:59 06:59 Intake Total 3 1979 1919 Output Total 100 Balance 2213 1979 1919 Result Diagrams: 09/14/20 09:38 09/11/20 04:32 Hospitalist ROS - Review of Systems Cardiovascular: denies: chest pain, palpitations, orthopnea, paroxysmal noc. dyspnea, edema, light headedness, other Gastrointestinal: denies: nausea, vomiting, abdominal pain, diarrhea, constipation, melena, hematochezia, other Genitourinary: denies: dysuria, frequency, incontinence, hematuria, retention, other - Medication Medications: Active Medications Generic Name Dose Route Start Last Admin Trade Name Freq PRN Reason Stop Dose Admin Acetaminophen 650 mg 09/10/20 09:24 09/12/20 13:27 Acetaminophen 325 Mg Tab PO 650 mg Q4H PRN Administration Headache/Fever/Mild Pain (1-3) Acetaminophen/Butalbital/Caffeine 1 tab 09/11/20 03:12 09/11/20 03:57 Fioricet 325/50/40 Mg Tablet PO 09/16/20 03:13 1 tab Q4H PRN Administration Headache Ascorbic Acid 1,000 mg 09/11/20 09:00 09/15/20 09:06 Ascorbic Acid 500 Mg Chewable Tablet PO 1,000 mg DAILY AMELIA Administration Cholecalciferol 2,000 units 09/11/20 09:00 09/15/20 09:07 Cholecalciferol 1,000 Units (25 Mcg) Tab PO 2,000 units DAILY AMELIA Administration Levothyroxine Sodium 100 mcg 09/11/20 06:00 09/15/20 06:22 Levothyroxine Sodium 100 Mcg Tab PO 100 mcg 0600 AMELIA Administration Lorazepam 1 mg 09/15/20 10:44 09/15/20 20:23 Lorazepam 1 Mg Tab PO 1 mg Q8H PRN Administration Anxiety/Agitation Melatonin 3 mg 09/14/20 18:28 09/14/20 19:44 Melatonin 3 Mg Tab PO 3 mg HS PRN Administration Insomnia Nicotine 14 mg 09/11/20 18:00 09/15/20 17:16 Nicotine 14 Mg Patch TOP 14 mg Q24HR AMELIA Administration Ondansetron HCl 4 mg 09/11/20 12:00 09/14/20 15:44 Ondansetron Pf 4 Mg/2 Ml Vial IVP 4 mg Q4H PRN Administration Nausea/Vomiting Pantoprazole Sodium 40 mg 09/13/20 21:00 09/15/20 20:23 Pantoprazole 40 Mg Tab PO 40 mg BID AMELIA Administration Sodium Chloride 10 ml 09/10/20 21:00 09/15/20 09:09 Flush - Normal Saline 10 Ml Syringe IVF 10 ml Q12HR AMELIA Administration Sodium Chloride 10 ml 09/10/20 10:15 09/11/20 06:15 Flush - Normal Saline 10 Ml Syringe IVF 10 ml PRN PRN Administration Saline Flush Zinc Sulfate 220 mg 09/11/20 09:00 09/15/20 09:08 Zinc Sulfate 220 Mg Cap PO 220 mg DAILY AMELIA Administration - Exam Neck: negative: supple, symmetric, no JVD, no thyromegaly, no lymphadenopathy, no carotid bruit, JVD Heart: negative: RRR, no murmur, no gallops, no rubs, normal peripheral pulses, irregular, diminshed peripheral pulses, murmur present, II/IV, III/IV Respiratory: negative: CTAB, no wheezes, no rales, no ronchi, normal chest expansion, no tachypnea, normal percussion, rales, rhonchi, tachypneic, wheezes Gastrointestinal: negative: soft, non-tender, non-distended, normal bowel sounds, no palpable masses, no hepatomegaly, no splenomegaly, no bruit, no guarding, no rigidity, tender to palpation, distended, diminished bowl sounds, voluntary guarding Hosp A/P (1) History of peptic ulcer Code(s): Z87.11 - PERSONAL HISTORY OF PEPTIC ULCER DISEASE Status: Acute (2) Anemia Code(s): D64.9 - ANEMIA, UNSPECIFIED Status: Acute (3) Upper GI bleed Code(s): K92.2 - GASTROINTESTINAL HEMORRHAGE, UNSPECIFIED Status: Acute (4) Benzodiazepine abuse Code(s): F13.10 - SEDATIVE, HYPNOTIC OR ANXIOLYTIC ABUSE, UNCOMPLICATED Status: Acute (5) COVID-19 Code(s): U07.1 - COVID-19 Status: Acute - Plan We will continue Protonix twice daily. Patient finished his benzodiazepine tapering with phenobarbital August 30. He has been off of all medications since then. He is not tachycardic not hyper tensive is not really showing any withdrawals or withdrawal except for what he is telling us. Patient is opposed to go to another rehab center. Unable to undergo EGD due to his current Covid positive. Will stop steroids since his sats are 100%. Clear liquids advance per GIs recommendation 09/12 patient states that he was supposed to be on a tapering dose of phenobarbital. I will give him lorazepam 1 mg every 6 hours. I have told him that I will not give him a prescription of any benzodiazepines. Patient currently is not suicidal. Had a conversation with him and he states that he does not want to harm himself. We will advance his diet and if he tolerates possible discharge to his inpatient rehabilitation center. H&H has been stable. We will continue Protonix. 09/13 patient currently is on Ativan 1 every 6 hours as needed. His repeat Covid test was negative. I will go ahead and repeat another one if that is negative we will take him off the precautions and I will discharge him to rehab. Patient did have nausea vomiting yesterday however he has tolerated his breakfast today we will see how he does. H&H is stable. Continue Protonix 09/14 we will give IV Ativan x1 patient very tearful crying. Per GI no significant ulcers noted. We will continue Protonix twice a day. Possible discharge in a.m.
--- NOTE | 2020-09-15 20:51 | PDOC.DS.DS ---
Provider - Provider Date of Admission: 09/10/20 10:10 Date of Discharge: 09/15/20 Admitting Provider: Gretchen Jaramillo MD Consultations: Gastroentrology Primary Care Physician: OUT OF TOWN Course - Hospital Course Hospital Course: Patient patient is a very pleasant 40-year-old man initially presented to the hospital with hematemesis and black tarry stool. His COVID-19 rapid test was positive. However patient was completely asymptomatic. Patient was seen by GI conservative management due to Covid positive. Patient's chest x-ray appeared normal. His repeat to test were negative also his antibodies were negative. Patient at this time was seen by GI underwent a endoscopy which indicated normal esophagus nonerosive gastritis was noted mild erosive duodenitis was noted. patient was put on Protonix. To coming to the hospital patient was at a rehab center for benzodiazepine rehab. Peers that he had taken phenobarbital that was prescribed by the rehab last dose was August 31. He states that he feels symptoms of withdrawal however his vitals were stable. Patient at this time states that if he gets discharged he will be very depressed. Patient has a restraining order from his . He will be discharged to a rehab center. I have spoken with Dr. Albarran and updated her. Resuscitation Status: 09/10/20 09:24 Resuscitation Status Routine Resuscitation Status: FULL: Full Resuscitation - Labs Lab Results: 09/14/20 09:38 09/11/20 04:32 Abnormal Lab Results - Last 48 hrs 09/14/20 09:38: RBC 2.92 L, Hgb 9.1 L, Hct 26.7 L, MCH 31.3 H, Monocytes % 10.3 H, Lymphocytes # 3.9 H, Monocytes # 1.1 H - Physical Exam Vitals: Vital Signs (12 hours) Temp Pulse Resp BP BP Pulse Ox 09/15/20 19:52 98.4 F 92 19 145/82 H 99 09/15/20 15:32 97.8 F 87 18 120/81 99 09/15/20 11:18 97.8 F 97 18 106/69 100 Weight Admit Weight 170 lb 14.4 oz Weight 161 lb 6.4 oz Physical Exam: The patient was seen and examined on the day of discharge. Problem - Problem (1) History of peptic ulcer Code(s): Z87.11 - PERSONAL HISTORY OF PEPTIC ULCER DISEASE Status: Acute (2) Anemia Code(s): D64.9 - ANEMIA, UNSPECIFIED Status: Acute (3) Upper GI bleed Code(s): K92.2 - GASTROINTESTINAL HEMORRHAGE, UNSPECIFIED Status: Acute (4) Benzodiazepine abuse Code(s): F13.10 - SEDATIVE, HYPNOTIC OR ANXIOLYTIC ABUSE, UNCOMPLICATED Status: Acute (5) COVID-19 Code(s): U07.1 - COVID-19 Status: Acute Plan - Discharge Medications Prescriptions: Pantoprazole [Protonix] 40 mg PO BID #60 tab Home Medications: Medication Instructions Recorded Confirmed Type FLUoxetine HCl [Prozac] 40 mg PO DAILY 09/10/20 09/10/20 History Levothyroxine Sodium 100 mcg PO 0600 09/10/20 09/10/20 History Pantoprazole [Protonix] 40 mg PO BID #60 tab 09/15/20 Rx Allergies: No Known Allergies Allergy (Unverified 09/10/20 10:06) - Discharge Instructions Activity:: Activity as Tolerated Nourishment:: Regular Diet - Follow up Plan Referrals: [facility] PHYSICIAN,OUT OF [Primary Care Provider] - Mau Marx MD [Active] - Disposition: HOME Quality - Care Measures CORE MEASURES:: N/A
--- NOTE | 2020-09-16 10:33 | EKG ---
Test Reason : Blood Pressure : / mmHG Vent. Rate : 118 BPM Atrial Rate : 118 BPM P-R Int : 124 ms QRS Dur : 080 ms QT Int : 306 ms P-R-T Axes : 078 063 049 degrees QTc Int : 428 ms Sinus tachycardia Nonspecific T wave abnormality Abnormal ECG Confirmed by HERNÁN WELSH M.D. ([id number]), editor newspaper KRYSTINA ESPOSITO ([id number]) on 09/16/2020 10:33:02 AM Referred By: Confirmed By:HERNÁN WELSH M.D.
== END 2020-09-15 21:45 | disposition home or self-care (01) | DRG 177 ==
LOC: ERS 04:49 → 2SE 10:10 → SURG A 09-14 10:53
PROVIDERS: ADMIT Internal Medicine; ATTEND Internal Medicine
PROC: 8E0ZXY6 Isolation (ICD-10-PCS; principal; 2020-09-10)
PROC: 0DB78ZX Excision of Stomach, Pylorus, Via Natural or Artificial Opening Endoscopic, Diagnostic (ICD-10-PCS; 2020-09-14)
DX: U07.1 COVID-19 (principal); J12.82 Pneumonia due to coronavirus disease 2019; K92.1 Melena; D62 Acute posthemorrhagic anemia; E03.9 Hypothyroidism, unspecified; I10 Essential (primary) hypertension; K27.9 Peptic ulcer, site unspecified, unspecified as acute or chronic, without hemorrhage or perforation; F13.10 Sedative, hypnotic or anxiolytic abuse, uncomplicated; K29.70 Gastritis, unspecified, without bleeding; K29.80 Duodenitis without bleeding; E86.0 Dehydration; Z79.890 Hormone replacement therapy; Z79.899 Other long term (current) drug therapy
CPT/HCPCS: 36415; 74177; 80053; 83605; 83690; 85018; 85025; 85610; 85730; 86769; 86850; 86900; 86901; 87635; 88305; 88312; 90471; 90662; 93005; 96374; C9113; G0008; J1100; J2060; J2270; J2405; J2704; Q9967; U0003; U0005